=== PATIENT | female | born 1965 | race Caucasian/White ===

== ENCOUNTER 2021-04-24 08:20 | Emergency (ER) | payer OTHER ==
[~2021-04-24] VITALS: Ht 160 cm; Wt 70.3 kg
[2021-04-24 10:53] LABS: RED BLOOD COUNT 4.48 M/UL (4.00-5.10); WHITE BLOOD COUNT 4.2 K/UL (4.5-11.0)
[2021-04-24 11:17] LABS: BUN/CREATININE RATIO 13 (0-10)
== END 2021-04-24 15:14 | disposition home or self-care (01) ==
LOC: ER1 08:20
PROVIDERS: Student in an Organized Health Care Education/Training Program
DX: U07.1 COVID-19 (principal); Z23 Encounter for immunization; E78.5 Hyperlipidemia, unspecified
CPT/HCPCS: 70450; 71045; 80053; 82550; 82553; 83874; 84484; 85025; 85379; 90715; 93005; 99284; M0245; U0002

== ENCOUNTER → 2022-01-10 | Outpatient (CLI) | payer OTHER | LOC: KOH-I 09:00 | DX: K59.00 Constipation, unspecified (principal) | CPT/HCPCS: 74018 ==